=== PATIENT | female | born 1940 | race Caucasian/White ===

== ENCOUNTER → 2017-02-13 | Outpatient (CLI) | payer OTHER, BC ==
[~2017-02-13] MED LIST: ACETAMINOPHEN325 M1 PO; ACIDOPHILUS1 EAC2 PO; ADVAIR HFA115 MCG/21 INH; ALBUTEROL HFA; ALDACTONE25 MG PO; AMLODIPINE BESY10 MG PO; ATROVENT15 ML; AUGMENTIN 500-1 EACH; AYR SALINE NASA14 GM NASAL; AYR50 ML NASAL; B12INJ SUBQ; BENZONATATE200 MG PO; BYDUREON2 MG; C-10001000 MG PO; CALCIUM 600 +1 EAC1 PO; CARDIZEM CD 18180 M3 PO; CARDIZEM CD240 MG PO; CARTIA XT PO; CARTIA XT180 M1 PO; CARTIA XT240 M1 PO; CEFTIN 250 MG250 MG PO; CEFTIN500 MG PO; CENTRUM SILVER1 EAC4 PO; CERTAVITE-LUTE1 EAC1 PO; CHROMIUM400 MCG PO; COLACE100 MG PO; COUMADIN 2.5MG2.5 M1 PO; COUMADIN 4 MG TA4 M1; COUMADIN 5 MG TA5 M1; COUMADIN 5 MG TA5 M1 PO; COUMADIN7.5 MG PO; CYCLOBENZAPRINE10 MG PO; CYMBALTA30 MG PO; CYMBALTA60 MG PO; DEMADEX20 MG PO; DESITIN113 GM TOP; DILTIAZEM 24HR120 M1 PO; DILTIAZEM ER120 M1 PO; DIOVAN 80 MG TA80 M1 PO; DIOVAN40 MG PO; DOXYCYCLINE 10100 M1 PO; DOXYCYCLINE 10100 MG PO; DUONEB 2.5-0.5 M3 ML INH; ELOCON30 ML; FIORINAL 50-321 EACH PO; FISH OIL 1,001000 M2 PO; FLECAINIDE ACE100 MG PO; FLECAINIDE ACET50 M1 PO; FLEXERIL PO; FLOMAX0.4 MG PO; FOLIC ACID1 MG PO; FUROSEMIDE 40 M40 M1 PO; HUMALOG100 UNIT/1 SUBQ; HYDROCODON-ACE1 EAC1; HYDROXYCHLOROQ200 M1 PO; IBUPROFEN 200200 M1 PO; IBUPROFEN200 M2 PO; INVANZ 1GM/NS 101 GM IV; JANTOVEN5 MG PO; JANUVIA50 MG PO; K-DUR 20 MEQ T20 MEQ PO; K-DUR10 MEQ PO; LASIX 20 MG TAB20 MG PO; LASIX 40 MG TAB40 M1 PO; LASIX 40 MG TAB40 M2 PO; LEVALBUTER0.63 MG/3 IH; LEVAQUIN 500 M500 M1 PO; LEVEMIR SUBQ; LIDODERM 5%1 PATC1 TOP; LIDODERM 5%1 PATC1 TRANSDERM; LIDODERM 5%1 PATCH TOP; LOPRESSOR25 PO; MAGNESIUM400 MG PO; MAXAIR AUTOHALE14 G1 INH; MEDROL4 MG PO; METOLAZONE 5 MG5 MG PO; MIRALAX17 GM PO; MIRALAX255 GM PO; MOM PO; MOMETASONE FURO60 ML; MOMETASONE FUROA1 GM; MYRBETRIQ25 MG PO; MYRBETRIQ50 MG PO; NEURONTIN 400400 M1 PO; NORCO 5-325 TA1 EACH PO; NORFLEX100 MG PO; NORTRIPTYLINE H50 M3 PO; NORTRIPTYLINE H50 MG PO; NOVOLOG100 UNIT/1 SQ; OCEAN45 ML NS; OMEGA-31000 M1 PO; ONDANSETRON ODT8 MG SUBLING; ORADENT 0.1% DEN5 G1; OSCIMIN SL0.125 MG SUBLING; OXECTA5 MG PO; OXYCODONE HCL 55 MG PO; PACERONE 200 M200 MG PO; PANTOPRAZOLE SO40 M1 PO; POTASSIUM20 PO; PREDNISONE 10 M10 M1 PO; PREDNISONE 10 M10 MG PO; PREDNISONE 20 M20 M1 PO; PREDNISONE 20 M20 MG PO; PREDNISONE 5 MG5 M1 PO; PREMARIN0.3 MG PO; PREMARIN0.625 MG PO; PREPARATION H1 EAC2 TP; PROAIR HFA8.5 GM INH; PROTONIX40 M2 PO; PROTONIX40 M4 PO; PULMICORT0.25 MG/2 IH; PULMICORT0.25 MG/2 INH; PULMICORT0.25 MG/3 INH; ROBAXIN 750 MG750 M1 PO; SENNA PO; SENNA-S TABLET1 EACH PO; SENNA8.6 MG PO; SENOKOT-S1 TA1 PO; SPIRIVA INH; SPIRIVA18 MCG INH; SYMBICORT160 MCG/4. INH; TENORMIN25 MG PO; TESSALON PERLE100 M1 PO; TORSEMIDE20 MG PO; TRAMADOL 50 MG50 MG PO; TRIAMCINOLONE A80 G2; TYLENOL325 MG PO; VENTOLIN HFA INH8 GM INH; VITAMIN C1000 MG PO; VITAMIN D32000 UNI1 PO; VITAMIN D3400 UNI2 PO; VOLTAREN GEL 1100 G2; VOLTAREN GEL 1100 G2 TOP; VOLTAREN100 GM; VOLTAREN100 GM TP; XARELTO10 MG PO; XARELTO20 MG PO; XOPENEX0.63 MG/3 INH; ZOFRAN8 MG PO; [UNRECOGNIZED DRUG - OTHER] MUCOUS MEM; [UNRECOGNIZED DRUG - OTHER] PO; [UNRECOGNIZED DRUG - OTHER] TP; [UNRECOGNIZED DRUG - SUPPLY]
== END ==
LOC: RAD 15:53
DX: R05 Cough (principal)

== ENCOUNTER → 2017-09-30 | Outpatient (CLI) | payer OTHER, BC ==
[2017-09-30 15:17] LABS: HEMOGLOBIN 12.6 gm/dL (12.0-15.0); MCH 31.9 pg (26.0-34.0); MCV 96.7 fL (80.0-100.0); RBC 3.93 mil/uL (4.20-5.00); RDW 14.3 % (10.5-14.5); WBC 9.6 thou/uL (4.0-11.0)
[2017-09-30 15:18] LABS: URINE BILIRUBIN NEGATIVE (Negative); URINE BLOOD TRACE (Negative); URINE CLARITY CLEAR; URINE COLOR YELLOW; URINE GLUCOSE-RANDOM* NEGATIVE (Negative); URINE KETONES NEGATIVE (Negative); URINE LEUKOCYTES NEGATIVE (Negative); URINE NITRITE NEGATIVE (Negative); URINE PROTEIN (DIPSTICK) NEGATIVE (Negative); URINE UROBILINOGEN 0.2 E.U./dl (0.2-1.0)
[2017-09-30 15:24] LABS: CALCIUM 8.6 mg/dL (8.5-10.1); CREATININE 1.5 mg/dL (0.6-1.0); POTASSIUM 4.9 mmol/L (3.5-5.1)
[2017-09-30 15:31] LABS: ALBUMIN 3.5 g/dL (3.4-5.0); TOTAL BILIRUBIN 0.3 mg/dL (<0.1-1.0); TOTAL PROTEIN 6.9 g/dL (6.4-8.2)
== END ==
LOC: RAD 14:30
PROVIDERS: Internal Medicine Pulmonary Disease
DX: R50.9 Fever, unspecified (principal); Z88.8 Allergy status to other drugs, medicaments and biological substances; Z88.5 Allergy status to narcotic agent; Z88.1 Allergy status to other antibiotic agents; Z88.0 Allergy status to penicillin

== ENCOUNTER 2018-06-01 15:57 | Inpatient (IN) | payer OTHER, BC ==
[~2018-06-01] VITALS: Ht 167.6 cm; Wt 117.9 kg
[~2018-06-01 15:57] MED LIST changes: +CARTIA XT120 M1 PO; +CHOLESTYRAMINE P4 GM PO; +DULERA 200 MCG/13 GM INH; +DURAGESIC25 MCG/HR TRANSDERM; +HYDROCORTISONE30 G9 RECTAL; +HYOSCYAMINE0.125 M2 SUBLING; -K-DUR10 MEQ PO; -LIDODERM 5%1 PATC1 TRANSDERM; +LIDODERM1 EACH TRANSDERM; +MIACALCIN200 UNIT/1 INH; +MYSOLINE50 MG PO; +SINGULAIR 10 MG10 M1 PO; +TOPROL XL25 MG PO; +ZANAFLEX4 MG PO
[2018-06-01 15:58] VITALS: BP 118/94
[2018-06-01 16:23] LABS: HEMATOCRIT 37.8 % (37.0-47.0); HEMOGLOBIN 12.6 gm/dL (12.0-15.0); MCH 34.1 pg (26.0-34.0); MCHC 33.4 g/dL (28.0-37.0); MCV 102.1 fL (80.0-100.0); PLATELET COUNT 197 thou/uL (150-400); RBC 3.71 mil/uL (4.20-5.00); RDW 15.7 % (10.5-14.5); WBC 5.2 thou/uL (4.0-11.0)
[2018-06-01 16:42] LABS: CALCIUM 8.1 mg/dL (8.5-10.1)
[2018-06-01 16:46] LABS: ALBUMIN 2.7 g/dL (3.4-5.0); TOTAL BILIRUBIN 0.4 mg/dL (<0.1-1.0); TOTAL PROTEIN 6.2 g/dL (6.4-8.2)
[2018-06-01 17:00] LABS: ABSOLUTE NEUTROPHILS 3.7 thou/uL (1.4-8.2)
[2018-06-01 17:52] LABS: URINE CLARITY SLIGHTLY CLOUDY; URINE COLOR YELLOW; URINE GLUCOSE-RANDOM* NEGATIVE (Negative); URINE KETONES 1+ (Negative); URINE PROTEIN (DIPSTICK) 1+ (Negative)
[2018-06-01 17:53] LABS: URINE BILIRUBIN NEGATIVE (Negative); URINE BLOOD 1+ (Negative); URINE LEUKOCYTES-REFLEX 3+ (Negative); URINE NITRITE-REFLEX POSITIVE (Negative); URINE UROBILINOGEN 0.2 E.U./dl (0.2-1.0)
[2018-06-01 18:10] LABS: CASTS None Seen /LPF (None Seen); CRYSTALS None Seen /LPF (None Seen); SQUAMOUS None Seen /LPF (0-3); URINE RBC 0-2 Rare /HPF (0-2); URINE WBC-REFLEX >25 Many /HPF (0-5)
[2018-06-01 18:45] VITALS: BP 141/88
[2018-06-01 19:04] VITALS: BP 155/84
[2018-06-01 19:40] VITALS: BP 140/96
[2018-06-01] MEDS ORDERED: COUMADIN 5 MG TA5 M1 PO (20:59)
[2018-06-01] MEDS ORDERED: CARTIA XT120 M1 PO (21:17)
[2018-06-01] MEDS ORDERED: LOPRESSOR50 PO (21:26)
[2018-06-01] MEDS ORDERED: TOPROL XL50 MG PO (21:27)
[2018-06-01] MEDS ORDERED: LEVALBUTER1.25 MG/0. INH (21:30)
[2018-06-01] MEDS ORDERED: METHOTREXATE 22.5 MG PO (21:32)
[2018-06-01] MEDS ORDERED: PATADAY2.5 ML OPHTHALMIC (21:34)
[2018-06-01] MEDS ORDERED: ASPIR 8181 M1 PO (21:36)
--- NOTE | 2018-06-02 03:15 | NUR ---
PT ARRIVED AT 1999 PT ORIENTATED TO ROOM AND CALL LIGHT PT PROVIDED INFO FOR ASSESMENT AND HX PT USED CALL LIGHT EFFECTIVELY PT GIVEN ORAL OXYCODONE FOR PAIN PT WAS ABLE TO REST FOR 4 HOURS.
[2018-06-02 03:46] VITALS: BP 135/69
[2018-06-02 06:05] LABS: HEMATOCRIT 36.3 % (37.0-47.0); HEMOGLOBIN 11.8 gm/dL (12.0-15.0); MCH 33.5 pg (26.0-34.0); MCHC 32.6 g/dL (28.0-37.0); MCV 102.9 fL (80.0-100.0); RBC 3.53 mil/uL (4.20-5.00); RDW 15.5 % (10.5-14.5); WBC 4.1 thou/uL (4.0-11.0)
[2018-06-02 06:14] LABS: INR 1.6; PROTIME 16.5 Seconds (9.3-11.4)
[2018-06-02 06:18] LABS: CALCIUM 7.7 mg/dL (8.5-10.1); CREATININE 0.9 mg/dL (0.6-1.0)
[2018-06-02 06:33] LABS: POTASSIUM 4.1 mmol/L (3.5-5.1)
--- NOTE | 2018-06-02 08:01 | EKG ---
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 : 1940 Requested By: Gayle Morales Order Number: [id number] MD: Ariel Patel Measurements Intervals [place] Rate: 88 P: [place]: QRS: 48 QRSD: 95 T: 177 QT: 451 QTc: 546 Interpretive Statements Atrial fibrillation Nonspecific ST and T wave abnormality Prolonged QT interval Compared to ECG 01/14/2018 07:11:00 Nonspecific change in the ST and T-wave segments Prolonged QT interval now present Electronically Signed On 06-02-2018 8:01:02 [facility] by Ariel Patel [email or web address] <ELECTRONICALLY SIGNED> By: Ariel Patel MD, [facility] 06/02/18800 0 0 Ariel Patel MD, [facility] /EPI
[2018-06-02 08:15] VITALS: BP 139/85
[2018-06-02 14:37] VITALS: BP 146/80
[2018-06-02] MEDS ORDERED: NEURONTIN 400400 M1 PO (15:08)
[2018-06-02] MEDS ORDERED: POTASSIUM20 PO (15:17)
[2018-06-02] MEDS ORDERED: TORSEMIDE20 MG PO (15:19)
[2018-06-02] MEDS ORDERED: COUMADIN 2.5MG2.5 M1 PO (15:20)
[2018-06-02] MEDS ORDERED: TRELEGY ELLIPT1 EACH INH (15:21)
[2018-06-02] MEDS ORDERED: VENTOLIN HFA 1818 GM INH (15:21)
--- NOTE | 2018-06-02 16:12 | NUR ---
PT ADMITTED RELLATED TO DEHYDRATION UTI N/V. CM REVIEWED CHART AND SPOKE WITH CARE TEAM. CM MET WITH PT AT BEDSIDE THIS DAY. PT IS A&OX4 CM ROLE INTRODUCED. PT INDICATED SHE LIVES IN A HOUSE WITH HER SPOUSE WITH 3 STEPS TO ENTER AND A STAIRGLIDE TO FINISHED BASEMENT. PT INDICATED SHE HAS A 4WW FOR USE AT HOME AND A SCOOTER SHE USES IN THE COMMUNITY. PT INDICATED SE HAS HAD [facility] IN THE PAST AND THAT SHE HAS GONE TO [facility] FOR SNF. PT INDICATED SHE WOULD PREFER TO GO HOME ONCE MEDICALLY STABLE BUT WOULD BE AGREEABLE TO HH OR POST [facility] IF RECOMMENDED. CM TO FOLLOW INDICATED WITH DC PLANNING.
--- NOTE | 2018-06-02 17:28 | NUR ---
PT STABLE THROUGHOUT SHIFT. PT C/O PAIN AND NAUSEA THROUGHOUT SHIFT, MEDICATION GIVEN FOR BOTH. PT WORKED WITH PT. VERY LITTLE APPETITE, PT SLEPT MOST OF SHIFT. RESTING COMFORTABLY.
[2018-06-02 20:16] VITALS: BP 146/85
[2018-06-03 03:23] VITALS: BP 140/76
--- NOTE | 2018-06-03 03:24 | NUR ---
PT GIVEN OXYCODONE FOR PAIN DURING THE NIGHT PT RESTED THROUGH MOST OF THE NIGHT PT USED CALL LIGHT EFFECTIVELY.
[2018-06-03 05:50] LABS: CREATININE 0.7 mg/dL (0.6-1.0); MAGNESIUM 1.6 mg/dL (1.8-2.4)
[2018-06-03 05:54] LABS: INR 1.9; PROTIME 20.1 Seconds (9.3-11.4)
[2018-06-03 06:05] LABS: POTASSIUM 3.8 mmol/L (3.5-5.1)
[2018-06-03 07:26] LABS: HEMATOCRIT 33.6 % (37.0-47.0); HEMOGLOBIN 10.8 gm/dL (12.0-15.0); MCH 33.3 pg (26.0-34.0); MCHC 32.3 g/dL (28.0-37.0); MCV 103.2 fL (80.0-100.0); RBC 3.25 mil/uL (4.20-5.00); RDW 15.3 % (10.5-14.5); WBC 4.5 thou/uL (4.0-11.0)
[2018-06-03 09:07] VITALS: BP 149/76
[2018-06-03] MEDS ORDERED: PREVALITE PACKET4 GM PO (11:53)
[2018-06-03] MEDS ORDERED: HYOSYNE0.125 MG/1 PO (11:53)
[2018-06-03] MEDS ORDERED: VOLTAREN GEL 1100 G1 TOP (11:53)
[2018-06-03] MEDS ORDERED: CEFUROXIME250 MG PO (11:53)
[2018-06-03] MEDS ORDERED: ACETAMINOPHEN325 M1 PO (11:53)
[2018-06-03 14:24] VITALS: BP 149/76
--- NOTE | 2018-06-03 14:27 | NUR ---
CARE TEAM INDICATED THAT PT IS MEDICALLY STABLE TO DISCHARGE HOME THIS DAY. CM CONTACTED [facility] PER PT'S REQUEST SHE HAD USED THEM IN IDRIS PAST FOR PT OT NURSING AND HOME HEALTH AID. CM FAXED REFERRAL FOR REVIEW. PT HAS ALL RECOMMENDED DME. NO OTHER CM INTERVENTION INDICATED AT THIS TIME. CASE CLOSED.
[2018-06-03 15:33] VITALS: BP 149/76
--- NOTE | 2018-06-03 16:00 | NUR ---
PT STABLE THROUGHOUT SHIFT. PT DISCHARGED HOME WITH . PT LEFT UNIT VIA WHEELCHAIR TO PRIVATE VEHICLE.
== END 2018-06-03 17:00 | disposition home health service (06) | DRG 871 ==
LOC: ER 15:57 → 4W 18:26 → EROBS 18:26 → 4W 19:10 → ENTRNSPT 06-03 16:26 → 4W 06-03 17:00
PROVIDERS: Nurse Practitioner Family; Physician Assistant; ADMIT Internal Medicine
DX: A41.9 Sepsis, unspecified organism (principal); E43 Unspecified severe protein-calorie malnutrition; N30.00 Acute cystitis without hematuria; Z68.41 Body mass index [BMI] 40.0-44.9, adult; E87.6 Hypokalemia; D86.9 Sarcoidosis, unspecified; M81.0 Age-related osteoporosis without current pathological fracture; M62.84 Sarcopenia; J44.9 Chronic obstructive pulmonary disease, unspecified; J45.909 Unspecified asthma, uncomplicated; E11.9 Type 2 diabetes mellitus without complications; K21.9 Gastro-esophageal reflux disease without esophagitis; E86.0 Dehydration; I50.9 Heart failure, unspecified; E83.42 Hypomagnesemia; I48.0 Paroxysmal atrial fibrillation; I11.0 Hypertensive heart disease with heart failure; R19.7 Diarrhea, unspecified; E66.01 Morbid (severe) obesity due to excess calories; F32.9 Major depressive disorder, single episode, unspecified; Z88.5 Allergy status to narcotic agent; Z88.8 Allergy status to other drugs, medicaments and biological substances; Z88.0 Allergy status to penicillin; Z79.51 Long term (current) use of inhaled steroids; Z98.891 History of uterine scar from previous surgery; Z90.49 Acquired absence of other specified parts of digestive tract; Z90.710 Acquired absence of both cervix and uterus; Z79.82 Long term (current) use of aspirin; Z79.899 Other long term (current) drug therapy; Z87.891 Personal history of nicotine dependence; Z79.1 Long term (current) use of non-steroidal anti-inflammatories (NSAID)
CPT/HCPCS: 10045

== ENCOUNTER 2018-07-02 09:29 | Inpatient (IN) | payer OTHER, BC ==
[~2018-07-02] VITALS: Ht 167.6 cm; Wt 113.4 kg
[2018-07-02] VITALS (7 sets, daily range): BP systolic 108–167; BP diastolic 39–91
[~2018-07-02 09:29] MED LIST changes: +ASPIR 8181 M1 PO; +CEFUROXIME250 MG PO; +HYOSYNE0.125 MG/1 PO; +LEVALBUTER1.25 MG/0. INH; +LOPRESSOR50 PO; +METHOTREXATE 22.5 MG PO; +PATADAY2.5 ML OPHTHALMIC; +PREVALITE PACKET4 GM PO; +TOPROL XL50 MG PO; +TRELEGY ELLIPT1 EACH INH; +VENTOLIN HFA 1818 GM INH; +VOLTAREN GEL 1100 G1 TOP
[2018-07-02 09:53] LABS: ABSOLUTE NEUTROPHILS 15.4 thou/uL (1.4-8.2); BASOPHILS 0.3 % (0.0-2.0); EOSINOPHILS 0.2 % (0.0-3.0); HEMATOCRIT 33.1 % (37.0-47.0); HEMOGLOBIN 11.3 gm/dL (12.0-15.0); LYMPHOCYTES 4.6 % (24.0-44.0); MCH 33.1 pg (26.0-34.0); MCV 97.3 fL (80.0-100.0); MONOCYTES 4.2 % (1.0-8.0); PLATELET COUNT 176 thou/uL (150-400); POLYS 90.7 % (36.0-66.0); RBC 3.41 mil/uL (4.20-5.00)
[2018-07-02 10:01] LABS: ANION GAP 7 mmol/L (7-16); BUN 31 mg/dL (7-18); CALCIUM 9.3 mg/dL (8.5-10.1); CHLORIDE 102 mmol/L (98-107); CO2 22 mmol/L (21-32); CREATININE 2.8 mg/dL (0.6-1.0); GLUCOSE 70 mg/dL (74-106); SODIUM 131 mmol/L (136-145)
[2018-07-02 10:03] LABS: POTASSIUM 6.7 mmol/L (3.5-5.1)
[2018-07-02 10:04] LABS: INR 1.1; PROTIME 11.7 Seconds (9.3-11.4)
[2018-07-02 10:10] LABS: ALBUMIN 2.7 g/dL (3.4-5.0); SGOT 30 U/L (15-37); SGPT 43 U/L (30-65); TOTAL BILIRUBIN 0.4 mg/dL (<0.1-1.0); TOTAL PROTEIN 6.4 g/dL (6.4-8.2); TROPONIN-I <0.06 ng/mL (<0.06)
[2018-07-02 10:12] LABS: URINE BILIRUBIN NEGATIVE (Negative); URINE BLOOD 2+ (Negative); URINE CLARITY CLOUDY; URINE COLOR YELLOW; URINE GLUCOSE-RANDOM* NEGATIVE (Negative); URINE KETONES NEGATIVE (Negative); URINE NITRITE-REFLEX NEGATIVE (Negative); URINE PROTEIN (DIPSTICK) 1+ (Negative); URINE SPECIFIC GRAVITY 1.015 (1.005-1.035); URINE UROBILINOGEN 0.2 E.U./dl (0.2-1.0)
[2018-07-02 10:13] LABS: URINE LEUKOCYTES-REFLEX 3+ (Negative)
[2018-07-02 10:20] LABS: BACTERIA-REFLEX >30 Many /HPF (None Seen); CASTS None Seen /LPF (None Seen); CRYSTALS None Seen /LPF (None Seen); SQUAMOUS None Seen /LPF (0-3); URINE RBC 3-10 Few /HPF (0-2); URINE WBC-REFLEX >25 Many /HPF (0-5)
[2018-07-02 10:26] LABS: URINE CREATININE-RANDOM* 104.3 mg/dL
[2018-07-02] MEDS ORDERED: CENTRUM SILVER1 EAC4 PO (10:28)
[2018-07-02] MEDS ORDERED: VITAMIN C1000 MG PO (10:31)
[2018-07-02] MEDS ORDERED: TOPROL XL25 MG PO (10:33)
--- NOTE | 2018-07-02 10:40 | NUR ---
VASCULAR ACCESS NURSE AT BEDSIDE TO ACCESS APPROPRIATE IV
[2018-07-02 12:29] LABS: CALCIUM 8.6 mg/dL (8.5-10.1); CREATININE 2.6 mg/dL (0.6-1.0); POTASSIUM 5.6 mmol/L (3.5-5.1)
--- NOTE | 2018-07-02 14:47 | EKG ---
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 : 1940 Requested By: Rohan Muse Order Number: [id number] MD: Ariel Patel Measurements Intervals [place] Rate: 99 P: MS: QRS: 89 QRSD: 104 T: 76 QT: 351 QTc: 451 Interpretive Statements Atrial fibrillation Borderline right axis deviation Low voltage, extremity and precordial leads Compared to ECG 06/02/2018 06:01:31 Low QRS voltage now present Prolonged QT interval no longer present Electronically Signed On 07-02-2018 14:47:23 [employer] by Ariel Patel [email or web address] <ELECTRONICALLY SIGNED> By: Ariel Patel MD, [facility] 07/02/18 1447 0940 0940 Ariel Patel MD, [facility] /EPI
--- NOTE | 2018-07-02 18:00 | NUR ---
ASSUMED CARE OF PATIENT AT 1200 FROM THE ER. PATIENT COMPLAINS OF WEAKNESS IN HER LEGS FOR THE PAST WEEK. PATIENT ASSISTED IN TRANSFERRING HERSELF TO THE BED AND ROLLING FROM SIDE TO SIDE. SHE IS VERY TIRED FROM THE MOVE AND READY TO REST IN BED. ADMISSION ASSESSMENT COMPLETED. PATIENT RESTING IN THE BED COMFORTABLY WITH CALL LIGHT WITHIN PLACE. PATIENT IS USING BEDPAN FOR VOIDING. CONTINUE WITH POC.
--- NOTE | 2018-07-02 18:02 | NUR ---
ASSUMED CARE OF PATIENT AT 1200. PT/VITALS STABLE. COMPLAINS OF PAIN IN HER NECK, WHICH WAS ALLEVIATED WITH OXYCODONE. TOLERATES ACTIVITY WELL. ASSESSMENT CHARTED. PROGRESSING WELL WITH POC. PLAN IS TO CONTINUE TO MONITOR AND FOLLOW WITH POC.
--- NOTE | 2018-07-03 03:53 | NUR ---
ASSUMED CARE AT 1900. PT ALERT AND ORIENTED. PERSISTENT COUGH , GIVEN LOZENGES. BLOOD CULTURE POSITIVE OF GRAM NEGATIVE RODS. PT STARTED ON ROCEPHIN. CINDIIES BRANDON, N/V/D. WILL CONINUE TO MONITOR.
[2018-07-03 04:28] LABS: CALCIUM 8.1 mg/dL (8.5-10.1); CREATININE 2.3 mg/dL (0.6-1.0); POTASSIUM 5.8 mmol/L (3.5-5.1)
[2018-07-03 04:32] LABS: ALBUMIN 2.5 g/dL (3.4-5.0); PHOSPHORUS 2.2 mg/dL (2.5-4.9)
[2018-07-03 04:49] VITALS: BP 142/69
[2018-07-03 09:10] VITALS: BP 111/80
--- NOTE | 2018-07-03 11:07 | 2DMMODE ---
[facility] [address] [place] [address] 2 D/M-MODE ECHOCARDIOGRAM Name: DEBCANDY L Room #: 212-P [facility] IN .R.#: [id number] Admission: 07/02/18 Attend Phys: Dennis Block Discharge: Date of : 42 Date of Service: 07/03/18 1106 Report #: [id number] THIS REPORT FOR: //name// APPROVED REPORT Study performed: 07/03/2018 10:30:40 EXAM: Comprehensive 2D, Doppler, and color-flow Echocardiogram Patient Location: Bedside Room #: [facility] Status: routine BSA: 2.20 HR: 105 bpm BP: 111/80 mmHg Rhythm: Atrial Fibrillation Other Information Study Quality: Adequate Technically limited study due to morbid obesity, labored breathing. Indications Exertional dyspnea, Afib. Hx: Afib, CHF, COPD, HTN, DM 2D Dimensions RVDd: 37.09 mm IVSd: 9.64 (7-11mm) LVOT Diam: 19.92 (18-24mm) LVDd: 49.48 mm PWd: 10.05 (7-11mm) Ascending Ao: 36.78 (22-36mm) LVDs: 34.69 (25-40mm) Aortic Root: 32.83 mm Volumes Left Atrial Volume (Systole) Single Plane 4CH: 61.28 mL Single Plane 2CH: 82.30 mL LA ESV Index: 35.00 mL/m2 Aortic Valve AoV Peak Reynold.: 2.00 m/s AO Peak Gr.: 16.00 mmHg LVOT Max P.15 mmHg AO Mean Gr.: 9.74 mmHg AO V2 Mean: 1.48 m/s LVOT Max V: 1.13 m/s AO V2 VTI: 32.66 cm COMFORT Vmax: 1.77 cm2 [facility] [place] [address] 2 D/M-MODE ECHOCARDIOGRAM Name: DEBCANDY Carmen Room #: 212-P [facility] IN ..#: [id number] Admission: 07/02/18 Attend Phys: Dennis Block Discharge: Date of : 42 Date of Service: 07/03/18 1106 Report #: [id number] Mitral Valve MV Decel. Time: 163.86 ms MV E Max Reynold.: 1.42 m/s Pulmonary Valve PV Peak Reynold.: 1.06 m/s PV Peak Gr.: 4.50 mmHg Tricuspid Valve TR Peak Reynold.: 26.00 m/s RAP Estimate: 10.00 mmHg TR Peak Gr.: 26.00 mmHg PA Pressure: 36.00 mmHg Left Ventricle The left ventricle is normal size. There is normal left ventricular wall thickness. Left ventricular systolic function is low normal. LVEF is 50%. This study is not technically sufficient to allow evaluation of the LV diastolic function due to atrial fibrillation. Right Ventricle The right ventricle is normal size. The right ventricular systolic function is normal. Atria Left atrium is moderately dilated. Right atrium is mildly dilated. Aortic Valve Aortic valve is mild to moderately calcified. Mild aortic regurgitation. miild aortic stenosis. Mitral Valve Mitral valve leaflets are mildly thickened. Moderate mitral regurgitation. No evidence of mitral valve stenosis. Tricuspid Valve The tricuspid valve is normal in structure. Moderate tricuspid regurgitation. Estimated PAP is 35-40mmHg. Pulmonic Valve Pulmonic valve is not well visualized. Trace pulmonic regurgitation. Great Vessels The aortic root is normal in size. The ascending aorta is normal in size. IVC is normal in size and collapses >50% with [facility] [address] [place] [address] 2 D/M-MODE ECHOCARDIOGRAM Name: CANDY BOYD Carmen Room #: 212-P [facility] IN [facility].#: [id number] Admission: 07/02/18 Attend Phys: Dennis Block Discharge: Date of : 42 Date of Service: 07/03/18 1106 Report #: [id number] inspiration. Pericardium There is no pericardial effusion. <Conclusion> The left ventricle is normal size. LVEF is 50%. Left atrium is moderately dilated. Right atrium is mildly dilated. Aortic valve is mild to moderately calcified. Mild aortic regurgitation. miild aortic stenosis. Mitral valve leaflets are mildly thickened. Moderate mitral regurgitation. The tricuspid valve is normal in structure. Moderate tricuspid regurgitation. Estimated PAP is 35-40mmHg. Pulmonic valve is not well visualized. Trace pulmonic regurgitation. There is no pericardial effusion. <ELECTRONICALLY SIGNED> By: Piter Hutchins MD 07/03/18 1106 1106 110 Piter Hutchins MD /INF
[2018-07-03 12:12] VITALS: BP 137/53
--- NOTE | 2018-07-03 14:00 | NUR ---
FAXED REFERRAL TO [facility] LEFT [facility] WITH JASBIR IN ADM. THAT REFERRAL FAXED AND DCP WILL FAX PT/OT NOTES ONCE AVAILABLE. ANTICIPATE DC THURSDAY 07/06. DCP TO FOLLOW.
--- NOTE | 2018-07-03 15:38 | NUR ---
Sow Manager visited with the pt at bedside this afternoon to discuss her dc planning needs. Pt known to from recent admission and dc home with on 06/03/18. She has continued to be seen by but noted to have falss and weakness at home. Therapy and the care team are recommending a snf stay [place]. Pt is familiar and has been to [facility] in the past. She would like to go there again for rehab. DC assortment planner has faxed a referral and [facility] has accepted the pt once medically cleared for dc. Pt and spouse updated at bedside this afternoon. [facility] is aware of her admission.
--- NOTE | 2018-07-03 16:30 | NUR ---
ASSESSMENT CHARTED - MEDS PER JOHNNIE - MAMADOU DIET AND FLUIDS WITH NO CO'S OF NASUEA. PT WITH NO CO'S OF PAIN - BM X 2 THIS SHIFT KAYEXALETE GIVEN ORDERED. SEEN BY PHYS THERAPY -POLLUTION CONTROL TECHNICIAN STATED PATIENT VERY WEAK AND COULD PARTICIPATE FOR ONLY A SHORT TIME. INFECTIOUS DISEASE NURSE STATED PATIENT NO LONGER NEEDED TO BE IN ISOLATION - ISO REMOVED. PT SOB WITH MIN EXERTION. HAS BEEN SLEEPING ALOT TODAY - SEEN BY SWS AND PT TO GO TO [facility] FOR POST ACCUTE CARE. NO CO'S AT THE PRESENT TIME.
[2018-07-03 16:45] VITALS: BP 118/51
[2018-07-03 20:09] VITALS: BP 113/56
[2018-07-04 04:18] LABS: ALBUMIN 2.2 g/dL (3.4-5.0); CALCIUM 7.6 mg/dL (8.5-10.1); CREATININE 1.6 mg/dL (0.6-1.0); PHOSPHORUS 3.4 mg/dL (2.5-4.9); POTASSIUM 4.7 mmol/L (3.5-5.1)
--- NOTE | 2018-07-04 04:21 | NUR ---
ASSUMED CARE AT 1900. PT ALERT AND ORIENTED. DENIES SOB, CHEST PAIN, AND DIARRHEA. PT HAS PERSISTENT COUGH, ALLEVIATED BY LOZENGES. PT RECEIVING ABX ROCEPHIN. OTHER ASSESSMENTS DOCUMENTED. WILL CONTINUE TO FOLLOW POC.
[2018-07-04 04:39] LABS: HEMATOCRIT 30.2 % (37.0-47.0); HEMOGLOBIN 9.8 gm/dL (12.0-15.0); MCHC 32.3 g/dL (28.0-37.0); MCV 102.1 fL (80.0-100.0); RBC 2.96 mil/uL (4.20-5.00); RDW 15.6 % (10.5-14.5)
[2018-07-04 04:45] VITALS: BP 125/63
[2018-07-04 08:30] VITALS: BP 148/85
[2018-07-04 12:50] VITALS: BP 122/63
[2018-07-04 15:50] VITALS: BP 123/66
--- NOTE | 2018-07-04 16:47 | NUR ---
ASSESSMENT CHARTED - MEDS PER JUL - PT GIVEN TYLENOL FOR CO'S OF PAIN IN R SHOULDER AND NECK WITH MOD EFFECT. PT STARTED ON PO VANC, RENAL ULTRASOOUND COMPLETED THIS SHIFT. INFECTIOUS DISEASE CONSULT THIS AM. PT WITH BM X 2 SOFT . MAMADOU DIET AND FLUIDS. NO CO'S AT THE RPESENT TIME.
[2018-07-04 20:41] VITALS: BP 125/77
--- NOTE | 2018-07-05 03:59 | NUR ---
ASSUMED CARE AT 1900. PT ALERT AND ORIENTED VITALS STABLE. C/O OF GENERALIZED PAIN AND BACK PAIN, PRN OXYCODONE GIVEN. PT STILL HAS A CONTINUOUS COUGH THAT IS SOME WHAT ALLEVIATED WITH LOZENGES. PT ALSO HAD A BM OVERNIGHT. WILL CONTINUE TO MONITOR AND FOLLOW POC.
[2018-07-05 06:27] LABS: INR 1.3; PROTIME 13.8 Seconds (9.3-11.4)
[2018-07-05 06:36] LABS: ALBUMIN 2.2 g/dL (3.4-5.0); CALCIUM 7.9 mg/dL (8.5-10.1); CREATININE 1.3 mg/dL (0.6-1.0); PHOSPHORUS 2.7 mg/dL (2.5-4.9); POTASSIUM 3.9 mmol/L (3.5-5.1)
[2018-07-05 08:10] VITALS: BP 134/67
--- NOTE | 2018-07-05 09:42 | HC ---
[facility] [place] [address] CONSULTATION Name: CANDY BOYD Room #: 212-P [facility] IN .R.#: [id number] Admission: 07/02/18 Attend Phys: Dennis Bowles Discharge: Date of : 42 Report #: [id number] THIS REPORT FOR: //name// CC: Levi Bowles REASON FOR CONSULTATION: I was asked to evaluate concerning gram-negative bacteremia in the setting of urinary tract infection and recurrent C. difficile colitis. HISTORY OF PRESENT ILLNESS: The patient was a 77-year-old, known history of COPD, systemic sclerosis, coronary artery disease, fibromyalgia, recurring nausea, vomiting, abdominal pain and diarrhea. Has been C. difficile positive in the past. She has also had previous episodes of urinary tract infection and urosepsis. She presents now with shortness of breath associated with nausea and vomiting. Stools have been loose. No dysuria. She has had some increased back pain mostly on the left. She does have chronic back pain. Had temperature up to 101.1 degrees. Admitted through the Emergency Room and found to have E. coli in her urine with positive blood cultures. I am awaiting identification of the gram-negative in her blood. She has had no cough or sputum production. Placed on ceftriaxone and her fever has diminished. Currently, complains of shortness of breath. She is on 3 liters of oxygen per nasal cannula. She has had no cough of significance or hemoptysis. No pleuritic chest pain. No nausea or vomiting today. Mild abdominal discomfort. No hematuria or dysuria. Does have some pain in her left lower back. REVIEW OF SYSTEMS: A 10-point review of systems is negative other than what is described above. PAST MEDICAL HISTORY: Atrial fibrillation, COPD, hypertension, diabetes, appendectomy, cholecystectomy, hysterectomy, cervical spine surgery, urinary tract infection, systemic sclerosis, left internal carotid stenosis, obesity, acute on chronic kidney disease, paroxysmal atrial fibrillation, fibromyalgia, osteoarthritis. ALLERGIES: PENICILLIN, ERYTHROMYCIN, LANA INHIBITORS, DIAZEPAM, CODEINE, INDOMETHACIN, HORSE EQUINE PRODUCTS, PREGABALIN. FAMILY HISTORY: Noncontributory. SOCIAL HISTORY: She is a past smoker. No alcohol intake. PHYSICAL EXAMINATION: VITAL SIGNS: Temperature was afebrile, pulse 90, respirations 18, blood pressure 125/63. GENERAL: She was alert and cooperative, obese, sitting up in bed eating her breakfast on 3 liters of oxygen per nasal cannula, appeared her stated age. [address] [address] CONSULTATION Name: CANDY BOYD Room #: 212-P [facility] IN ..#: [id number] Admission: 07/02/18 Attend Phys: Dennis Bowles Discharge: Date of : 42 Report #: [id number] SKIN: With venous stasis dermatitis changes that were chronic to both lower extremities. No other rash or decubiti. HEENT: Eyes without scleral icterus. Mouth without mucositis. NECK: With no thyromegaly or mass. No palpable adenopathy. LUNGS: Decreased breath sounds bilaterally with no consolidation. HEART: Regular, without murmur, gallop or rub. ABDOMEN: Obese, soft, tender in the lower abdomen with no appreciable mass or hepatosplenomegaly. Left CVA tenderness. No spinal tenderness. EXTREMITIES: With 1+ peripheral edema in the lower extremities. No cyanosis or clubbing noted. NEUROLOGIC: The cranial nerves intact. Strength in the upper and lower extremities was normal. Sensation to touch in the upper and lower extremities was normal. PSYCHOLOGICAL: Mood was normal. LABORATORY STUDIES: Sodium 137, potassium 4.7, bicarbonate of 18, creatinine 1.6, baseline is 0.7. Hemoglobin 9.8, WBC 8.0, platelet count 123,000. Urinalysis with wbc's and bacteria with urine culture showing E. coli, sensitivities pending. Blood cultures positive for gram-negative bacilli, identification pending. Chest x-ray showed cardiomegaly, otherwise clear. IMPRESSION: A 77-year-old with gram-negative bacteremia, suspect urinary tract source. The patient does have some left costovertebral angle tenderness. In addition, the patient has chronic diarrhea with previous Clostridium difficile positive test over a month ago. 1. Recurrent nausea and vomiting, indeterminate in etiology. 2. Acute kidney injury, now improving. 3. Systemic sclerosis. 4. Morbid obesity. 5. Atrial fibrillation. 6. Chronic obstructive pulmonary disease. 7. Coronary artery disease. RECOMMENDATION: The patient has improved with resolution of her fever on ceftriaxone. I would like to continue this. We will add vancomycin enterally because of her history of C. difficile colitis. I reviewed her previous imaging studies. I have not seen a recent CT scan of the abdomen and pelvis. I would recommend this with contrast once her renal function improves to further evaluate not only the recurring nausea and vomiting issues, but also her complaint of chronic diarrhea. I would also be able to check for any upper urinary tract issues. In the meantime, while her creatinine is elevated, we [address] [place] [address] CONSULTATION Name: CANDY BOYD Room #: 212-P [facility] IN M.R.#: [id number] Admission: 07/02/18 Attend Phys: Dennis Bowles Discharge: Date of : 42 Report #: [id number] will check an ultrasound to ensure no ureteral obstruction. Make further adjustments once microbiology reports are back. <ELECTRONICALLY SIGNED> By: Abdirahman Asencio MD 07/05/18 0942 0920 1809 Abdirahman Asencio MD /nt
[2018-07-05 12:40] VITALS: BP 129/70
[2018-07-05 16:15] VITALS: BP 131/77
--- NOTE | 2018-07-05 16:21 | NUR ---
assessment as charted - meds as per jul - no co's of pain or nausea. kira diet and fluids. pt has been resting in bed for the shift - ns d/c'd as ordered. accuchecks as charted . no co's at the present time.
[2018-07-05 19:57] VITALS: BP 133/72
[2018-07-06 04:23] VITALS: BP 136/73
--- NOTE | 2018-07-06 05:07 | NUR ---
ASSUMED PT CARE AT 1900. VSS. PT A&O4. NO COMPLAINTS OF PAIN AND DISTRESS. ASSESSMENTS AND MEDS GIVEN ARE DOCUMENTED. PT SLEPT WELL ALL NIGHT. PT DID NOT GET OUT OF BED AT ANY POINT DURING THE NIGHT. USES BEDPAN FOR ELIMINSTION PT IS STABLE, REMAINS IN CONTROLLED AFIB RYTHM ON THE MONITOR, WILL CONTINUE TO MONITOR PER POC.
[2018-07-06 07:55] VITALS: BP 151/66
[2018-07-06 12:13] VITALS: BP 118/66
--- NOTE | 2018-07-06 13:43 | NUR ---
FAXED MOST RECENT PT/OT NOTES TO [facility] SPOKE WITH MINGO IN ADM. THAT WE ANTICIPATE DC TOMORROW. DCP TO FOLLOW.
--- NOTE | 2018-07-06 16:38 | NUR ---
patient accepted to [facility] once stable and bed avail. Updated patient.
--- NOTE | 2018-07-06 17:35 | NUR ---
ASSUMED CARE OF PT AT SHIFT CHANGE. ASSESSMENTS CHARTED. MEDS GIVEN PER JUL. PT AOX4, VSS, NO C/O PAIN. O2 SATS WNL ON 3 L O2. NO S/SX OF CARDIAC OR RESP DISTRESS NOTED. NO FURTHER NEEDS AT THIS TIME. WILL CONTINUE TO MONITOR AND FOLLOW POC.
[2018-07-06 19:29] VITALS: BP 138/78
--- NOTE | 2018-07-07 04:44 | NUR ---
1900. PT ALERT AND ORIENTED. CALL APPROPRIATELY FOR HELP. RIGHT SHOULDER PAIN STILL PRESENT. , PRN OXY GIVEN. PT STILL ON ABX FOR UTI, VITALS STABLE. PT TO CONTINUE WORKING WITH PT/OT. WILL CONTINUE TO FOLLOW POC.
[2018-07-07 05:14] VITALS: BP 134/69
[2018-07-07 08:00] VITALS: BP 128/63
--- NOTE | 2018-07-07 11:51 | NUR ---
tenative plan for Shiela in am.
[2018-07-07 12:00] VITALS: BP 119/54
[2018-07-07 16:00] VITALS: BP 106/46
[2018-07-07 19:33] VITALS: BP 144/72
--- NOTE | 2018-07-07 19:56 | NUR ---
ASSUMED CARE OF PT AT SHIFT CHANGE. ASSESSMENTS CHARTED. MEDS GIVEN PER JUL. PT AOX4, NO C/O PAIN, VSS, DENIES CHEST PAIN. NO S/SX OF CARDIAC OR RESP DISTRESS NOTED. PT GOT UP WITH PHYSICAL THERAPY TODAY AND UP TO COMMODE. DENIES ANY FURTHER CONCERNS. WILL CONTINUE TO MONITOR AND FOLLOW POC.
[2018-07-08 03:41] VITALS: BP 139/76
--- NOTE | 2018-07-08 03:45 | NUR ---
1900, PT AO X4. DENIES SOB, CHEST PAIN, N/V/D. PT ANTICIPATE TO D/C TO [facility] FOR MORE REHAB. VITAL SIGNS STABLE. PT CALLS APPROPRIATELY FOR HELP, STILL +2 EDEMA IN HER LOWER EXTREMITIES. PT CONTINUING WITH ANTIBIOTICS. WILL CONTINUE FOLLOW POC.
[2018-07-08 04:03] LABS: INR 1.4; PROTIME 14.8 Seconds (9.3-11.4)
[2018-07-08 04:04] LABS: CREATININE 1.3 mg/dL (0.6-1.0)
[2018-07-08 04:42] LABS: HEMATOCRIT 30.9 % (37.0-47.0); HEMOGLOBIN 9.9 gm/dL (12.0-15.0); MCH 32.1 pg (26.0-34.0); MCV 100.2 fL (80.0-100.0); RBC 3.08 mil/uL (4.20-5.00); RDW 15.1 % (10.5-14.5); WBC 7.4 thou/uL (4.0-11.0)
[2018-07-08 07:49] VITALS: BP 131/62
[2018-07-08] MEDS ORDERED: FIRVANQ50 MG/1 ML PO (11:56)
[2018-07-08] MEDS ORDERED: NITROGLYCERIN0.4 MG SUBLING (11:57)
[2018-07-08] MEDS ORDERED: LOPRESSOR50 PO (11:57)
[2018-07-08] MEDS ORDERED: CARDIZEM CD120 MG PO (11:59)
[2018-07-08] MEDS ORDERED: PROLOPRIM100 MG PO (12:02)
[2018-07-08 12:11] VITALS: BP 123/60
[2018-07-08] MEDS ORDERED: POTASSIUM20 PO (12:52)
[2018-07-08] MEDS ORDERED: DEMADEX20 MG PO (12:52)
[2018-07-08 15:37] VITALS: BP 137/63
--- NOTE | 2018-07-08 16:08 | NUR ---
PT. DISCHARGING TODAY TO [facility] FAXED DC ORDERS/SUMMARY TO FACILITY AND SPOKE WITH JASBIR IN ADM. SHE RECEIVED DC ORDERS AND SET UP TRANSPORTATION VIA [employer] [facility] [employer] [facility] FOR 1630. NOTIFIED (ANNMARIE) OF DISCHARGE AND TIME OF TRANSPORT. UNIT NOTIFIED AND CHART COPY PER US. RN TO CALL REPORT TO [phone].
--- NOTE | 2018-07-08 16:28 | NUR ---
ASSUMED CARE OF PT AT SHIFT CHANGE. ASSESSMENTS CHARTED. MEDS GIVEN PER JUL. VSS, C/O BACK PAIN THIS AM, MANAGED WITH PO TYLENOL. DENIES CHEST PAIN. O2 SATS REMAINED WNL ON 2-3L O2, NO S/SX OF CARDIAC OR RESP DISTRESS NOTED. URINE OUTPUT ADEQUATE, PT HAD BM THIS SHIFT. SPOUSE AT BEDSIDE DURING DAY. DC ORDERS ACKNOWLEDGED AND IMPLEMENTED. REPORT CALLED TO [facility], PT LEFT UNIT AT APPROX 1625 WITH ALL BELONGINGS AND SPOUSE, BY WHEELCHAIR. IV TAKEN OUT, TELE REMOVED.
--- NOTE | 2018-07-10 09:17 | HC ---
[facility] [place] [address] CONSULTATION Name: CANDY BOYD Room #: 212-P [facility] IN ..#: [id number] Admission: 07/02/18 Attend Phys: Dennis Bowles Discharge: 07/08/18 Date of : 42 Report #: [id number] THIS REPORT FOR: //name// CC: Levi Bowles ATTENDING PHYSICIAN: Dennis Bowles MD REASON FOR CONSULTATION: Acute kidney injury. HISTORY OF PRESENT ILLNESS: This patient with multiple medical problems and multiple admissions to this hospital was here last month with some bloody stool, nausea and vomiting. At that time, had admission also with hypokalemia, was discharged about one month ago. She has chronic C. diff intermittently and is on intermittent treatments per her primary physician, Dr. Maddox. She has intermittent longstanding diarrhea, treated with cholestyramine. This week, she has become progressively weak. She has had several falls, felt more short winded and came to the hospital, found to have a creatinine, which had been normal one month ago up to 2.8 with a potassium of 6.7. PAST MEDICAL HISTORY: She has chronic atrial fibrillation, history of COPD, previous hypertension and diabetes, previous appendectomy, cholecystectomy, hysterectomy and several back surgeries. FAMILY HISTORY: Father of an [place]. Mother had dementia. No renal disease in the family. CURRENT MEDICATIONS: Numerous, as follows: Include Ceftin, hyoscyamine and cholestyramine, gabapentin ____, prednisone 5 mg daily, Plaquenil 200 mg b.i.d., folic acid, omega-3 fatty acids, oxycodone p.r.n. pain, torsemide 40 mg daily, warfarin 5 mg, gabapentin 800 mg at bedtime, second dose of torsemide 20 mg at evening meal, albuterol inhaler, Cymbalta 30 mg b.i.d., vitamin D3 2000 units daily, Protonix 40 mg daily, diltiazem 120 mg b.i.d., fentanyl patch, Singulair 10 mg daily, Zanaflex 4 mg b.i.d., potassium 40 mEq b.i.d., atenolol 50 mg daily, vitamins, vitamin C 2000 mg daily and metoprolol XL 25 mg daily. Previously she had been on methotrexate as well and also baby aspirin. SOCIAL HISTORY: Former smoker, no alcohol. REVIEW OF SYSTEMS: GENERAL: She has been feeling poorly. EYES: Vision is somewhat poor. She has history of macular degeneration. ENT: Hearing okay. Swallows okay. No mouth sores. ENDOCRINE: Positive for diabetes. RESPIRATORY: Easily short-winded. CARDIAC: She is having some intermittent chest pains. [facility] [address] [place] [address] CONSULTATION Name: CANDY BOYD Carmen Room #: 212-P [facility] IN M.R.#: [id number] Admission: 07/02/18 Attend Phys: Dennis Bowles Discharge: 07/08/18 Date of : 42 Report #: [id number] GASTROINTESTINAL: She has had the chronic diarrhea. GENITOURINARY: Reasonably good stream without dysuria. MUSCULOSKELETAL: She has diffuse arthritis and weakness. NEUROLOGIC: Again, generalized weakness. PHYSICAL EXAMINATION: GENERAL: Chronically ill-appearing, overweight patient, but lucid and giving a good history. SKIN: She has got discoloration about her swollen left leg. SKELETAL: Otherwise no amputations. HEENT: Extraocular movements are full. No scleral icterus. Vision and hearing intact. Mucous membranes moist. Tongue, buccal mucosa benign. NECK: Neck veins flat. CHEST: Coarse. HEART: Distant and irregular. ABDOMEN: Soft and nontender. EXTREMITIES: Show some swelling of the left leg only. Peripheral pulses are diminished. LABORATORY DATA: Hemoglobin 11.3, white count 17, platelets 176. Urinalysis suggested UTI with pyuria and bacteriuria. Sodium 131, potassium 6.7, chloride 102, bicarbonate 22, creatinine 2.8, BUN 31. ASSESSMENT AND PLAN: 1. Acute kidney injury. Creatinine up. She is volume depleted. IV fluids are being given appropriately. 2. Hyperkalemia. No hyperkalemic changes apparent on current EKG strip. Heart rate is okay. This is being treated with insulin, stabilized with calcium and Kayexalate is given as well and high-dose albuterol will be ordered. 3. Connective tissue disease. She is on multiple medications, indicative of connective tissue disease. 4. Review of the lab in the hospital records indicates increased SUKHDEEP and increased sed rate and a positive SCL-70. ANCA and GBM have been negative in the past. 5. Diabetes mellitus. 6. Chronic Clostridium difficile. 7. Volume depletion with weakness. <ELECTRONICALLY SIGNED> By: Carlitos Farrar MD 07/10/18 0917 [id number] Carlitos Farrar MD /nt
== END 2018-07-08 16:25 | DRG 683 ==
LOC: ER 09:29 → 2N 10:35 → EROBS 10:35 → 2N 11:35
PROVIDERS: Emergency Medicine; Hospitalist; Internal Medicine; Nurse Practitioner Family; ADMIT Hospitalist
DX: N17.9 Acute kidney failure, unspecified (principal); A04.72 Enterocolitis due to Clostridium difficile, not specified as recurrent; E87.1 Hypo-osmolality and hyponatremia; J44.1 Chronic obstructive pulmonary disease with (acute) exacerbation; I42.9 Cardiomyopathy, unspecified; I13.0 Hypertensive heart and chronic kidney disease with heart failure and stage 1 through stage 4 chronic kidney disease, or unspecified chronic kidney disease; R78.81 Bacteremia; R65.10 Systemic inflammatory response syndrome (SIRS) of non-infectious origin without acute organ dysfunction; Z68.41 Body mass index [BMI] 40.0-44.9, adult; N12 Tubulo-interstitial nephritis, not specified as acute or chronic; F32.9 Major depressive disorder, single episode, unspecified; K21.9 Gastro-esophageal reflux disease without esophagitis; I50.9 Heart failure, unspecified; W19.XXXA Unspecified fall, initial encounter; E87.5 Hyperkalemia; I25.10 Atherosclerotic heart disease of native coronary artery without angina pectoris; M79.7 Fibromyalgia; G89.29 Other chronic pain; I48.0 Paroxysmal atrial fibrillation; M19.90 Unspecified osteoarthritis, unspecified site; E66.01 Morbid (severe) obesity due to excess calories; I48.2 Chronic atrial fibrillation; M34.9 Systemic sclerosis, unspecified; D64.9 Anemia, unspecified; B96.20 Unspecified Escherichia coli [E. coli] as the cause of diseases classified elsewhere; N18.9 Chronic kidney disease, unspecified; E11.22 Type 2 diabetes mellitus with diabetic chronic kidney disease; E86.0 Dehydration; E87.6 Hypokalemia; Z88.6 Allergy status to analgesic agent; Z88.1 Allergy status to other antibiotic agents; Z88.0 Allergy status to penicillin; Z88.7 Allergy status to serum and vaccine; Z88.8 Allergy status to other drugs, medicaments and biological substances; Z79.01 Long term (current) use of anticoagulants; Z79.899 Other long term (current) drug therapy; Z98.891 History of uterine scar from previous surgery; Z90.710 Acquired absence of both cervix and uterus; Z87.01 Personal history of pneumonia (recurrent); Z87.891 Personal history of nicotine dependence; Y93.89 Activity, other specified; Y92.098 Other place in other non-institutional residence as the place of occurrence of the external cause; Y99.8 Other external cause status; Z90.49 Acquired absence of other specified parts of digestive tract; Z90.89 Acquired absence of other organs; Z82.49 Family history of ischemic heart disease and other diseases of the circulatory system; Z81.8 Family history of other mental and behavioral disorders; Z79.52 Long term (current) use of systemic steroids
CPT/HCPCS: 10081

== ENCOUNTER → 2019-01-04 | Outpatient (CLI) | payer OTHER, BC ==
[~2019-01-04] MED LIST changes: +CARDIZEM CD120 MG PO; +FIRVANQ50 MG/1 ML PO; +NITROGLYCERIN0.4 MG SUBLING; +PROLOPRIM100 MG PO
== END ==
LOC: HYPER 12-29 12:03
DX: E11.622 Type 2 diabetes mellitus with other skin ulcer (principal); L97.812 Non-pressure chronic ulcer of other part of right lower leg with fat layer exposed; E11.22 Type 2 diabetes mellitus with diabetic chronic kidney disease; N18.9 Chronic kidney disease, unspecified; R60.0 Localized edema; I48.91 Unspecified atrial fibrillation; J44.9 Chronic obstructive pulmonary disease, unspecified; K21.9 Gastro-esophageal reflux disease without esophagitis; M19.90 Unspecified osteoarthritis, unspecified site; F41.9 Anxiety disorder, unspecified; Z90.710 Acquired absence of both cervix and uterus; Z90.49 Acquired absence of other specified parts of digestive tract; Z79.4 Long term (current) use of insulin; Z79.01 Long term (current) use of anticoagulants; Z87.891 Personal history of nicotine dependence

== ENCOUNTER → 2019-01-18 | Outpatient (CLI) | payer OTHER, BC | LOC: HYPER 06:42 | DX: E11.622 Type 2 diabetes mellitus with other skin ulcer (principal); L97.812 Non-pressure chronic ulcer of other part of right lower leg with fat layer exposed; E11.22 Type 2 diabetes mellitus with diabetic chronic kidney disease; N18.9 Chronic kidney disease, unspecified; I48.91 Unspecified atrial fibrillation; R60.0 Localized edema; K21.9 Gastro-esophageal reflux disease without esophagitis; J44.9 Chronic obstructive pulmonary disease, unspecified; M19.90 Unspecified osteoarthritis, unspecified site; F41.9 Anxiety disorder, unspecified; Z79.4 Long term (current) use of insulin; Z79.01 Long term (current) use of anticoagulants; Z87.891 Personal history of nicotine dependence ==

== ENCOUNTER → 2019-02-01 | Outpatient (CLI) | payer OTHER, BC | LOC: HYPER 06:57 | DX: E11.622 Type 2 diabetes mellitus with other skin ulcer (principal); L97.812 Non-pressure chronic ulcer of other part of right lower leg with fat layer exposed; E11.22 Type 2 diabetes mellitus with diabetic chronic kidney disease; N18.9 Chronic kidney disease, unspecified; R60.0 Localized edema; I48.91 Unspecified atrial fibrillation; J44.9 Chronic obstructive pulmonary disease, unspecified; K21.9 Gastro-esophageal reflux disease without esophagitis; M19.90 Unspecified osteoarthritis, unspecified site; F41.9 Anxiety disorder, unspecified; Z79.4 Long term (current) use of insulin; Z79.01 Long term (current) use of anticoagulants; Z87.891 Personal history of nicotine dependence ==

== ENCOUNTER → 2019-02-22 | Outpatient (CLI) | payer OTHER, BC | LOC: HYPER 07:47 | DX: E11.622 Type 2 diabetes mellitus with other skin ulcer (principal); L97.812 Non-pressure chronic ulcer of other part of right lower leg with fat layer exposed; E11.22 Type 2 diabetes mellitus with diabetic chronic kidney disease; N18.9 Chronic kidney disease, unspecified; R60.0 Localized edema; I48.91 Unspecified atrial fibrillation; J44.9 Chronic obstructive pulmonary disease, unspecified; K21.9 Gastro-esophageal reflux disease without esophagitis; M19.90 Unspecified osteoarthritis, unspecified site; F41.9 Anxiety disorder, unspecified; Z79.4 Long term (current) use of insulin; Z79.01 Long term (current) use of anticoagulants; Z87.891 Personal history of nicotine dependence ==